=== PATIENT | male | born 1975 | race Caucasian/White ===

== ENCOUNTER → 2023-06-24 08:57 | Outpatient (CLI) | payer BC, SELFPAY ==
[2023-06-24 10:47] LABS: Alanine Aminotransferase 17 IU/L (<50); Albumin 4.4 g/dL (3.5-5.0); Albumin Globulin Ratio 1.7 (1.0-2.8); Alkaline Phosphatase 85 U/L (38-126); Aspartate Aminotransferase 20 IU/L (17-59); BUN Creatinine Ratio 17.1 (6-22); Bilirubin Total 0.8 mg/dL (0.2-1.3); Blood Urea Nitrogen 13 mg/dL (9-20); Calcium 9.1 mg/dL (8.4-10.2); Carbon Dioxide 30 mmol/L (22-32); Chloride 103 mmol/L (98-107); Cholesterol 169 mg/dL (140-199); Estimated Glomerular Filt Rate > 60 mL/min (>60); Globulin 2.6 g/dL (1.7-4.1); Glucose 84 mg/dL (70-100); HDL Cholesterol 31 mg/dL (40-60); HEMOLYSIS < 15 (0-50); LDL Cholesterol Calculated 104 mg/dL (<100); Potassium 4.3 mmol/L (3.4-5.1); Sodium 139 mmol/L (137-145); Triglycerides 170 mg/dL (35-150)
[2023-06-24 10:55] LABS: High Sensitivity CRP - Cardiac 1.3 mg/L (1.0-3.0)
== END ==
PROVIDERS: PCP Pediatrics; Referring Provider Pediatrics; Visit Provider Pediatrics
DX: E78.5 Hyperlipidemia, unspecified (principal); Z80.0 Family history of malignant neoplasm of digestive organs; Z83.3 Family history of diabetes mellitus; Z83.438 Family history of other disorder of lipoprotein metabolism and other lipidemia
CPT/HCPCS: 36415; 80053; 80061; 86140

== ENCOUNTER → 2023-11-01 11:52 | Outpatient (CLI) | payer BC, SELFPAY ==
[2023-11-01 13:15] LABS: Appearance Urine UA CLEAR; Bilirubin Urine UA NEGATIVE (NEGATIVE); Color Urine UA YELLOW; Glucose Urine UA NEGATIVE (Negative); Ketones Urine UA NEGATIVE (NEGATIVE); Leukocyte Esterase Urine UA NEGATIVE (NEGATIVE); Nitrite Urine UA NEGATIVE (Negative); Occult Blood Urine UA NEGATIVE (Negative); Protein Urine UA NEGATIVE (Negative); pH Urine UA 6.5 (4.5-8.0)
[2023-11-01 13:28] LABS: Alanine Aminotransferase 21 IU/L (<50); Albumin 4.4 g/dL (3.5-5.0); Albumin Globulin Ratio 1.7 (1.0-2.8); Alkaline Phosphatase 72 U/L (38-126); Aspartate Aminotransferase 22 IU/L (17-59); BUN Creatinine Ratio 24.2 (6-22); Bilirubin Total 0.8 mg/dL (0.2-1.3); Blood Urea Nitrogen 16 mg/dL (9-20); Calcium 9.3 mg/dL (8.4-10.2); Carbon Dioxide 28 mmol/L (22-32); Chloride 102 mmol/L (98-107); Cholesterol 223 mg/dL (140-199); Estimated Glomerular Filt Rate > 60 mL/min (>60); Globulin 2.6 g/dL (1.7-4.1); Glucose 87 mg/dL (70-100); HDL Cholesterol 32 mg/dL (40-60); HEMOLYSIS < 15 (0-50); LDL Cholesterol Calculated 150 mg/dL (<100); Potassium 4.4 mmol/L (3.4-5.1); Sodium 136 mmol/L (137-145); Triglycerides 207 mg/dL (35-150)
[2023-11-01 13:39] LABS: Bacteria Urine None Seen; Culture Indicated Urine Cult Not Indicated; RBC Urine None Seen (0-5/HPF); Squamous Epithelial Cell Urine None Seen (0-5/HPF); WBC Urine None Seen (0-5/HPF)
== END ==
PROVIDERS: PCP Family Medicine; Referring Provider Family Medicine; Visit Provider Family Medicine
DX: E78.5 Hyperlipidemia, unspecified (principal); Z83.438 Family history of other disorder of lipoprotein metabolism and other lipidemia
CPT/HCPCS: 36415; 80053; 80061; 81001

== ENCOUNTER 2024-03-03 07:32 | Emergency (ER) | payer BC, SELFPAY ==
[2024-03-03 07:40] VITALS: BP 146/79; PULSE 79; RESP 18; TEMP 36.6; O2SAT 100
--- NOTE | 2024-03-03 07:46 | PC.NURSE ---
Pt states bilateral lower back pain that woke him up from sleep. pt reports pain 5/10. Pt states he took 1 aleve [employer].
--- NOTE | 2024-03-03 07:49 | ED_ITS ---
HPI - Abdominal Pain General Chief Complaint: Abdominal Pain Stated Complaint: lower back pain poss kindney stone per pt Time Seen by Provider: 03/03/24 07:38 Source: patient Mode of arrival: Family Vehicle History of Present Illness HPI narrative: Patient is a healthy 48-year-old male who presents today with sudden onset back pain. He reports it is left side greater than right side comes and goes in waves feels nauseous at times. It is radiating down into his left groin. He took 1 Aleve 1 hour prior to arrival it has not helped. He is in the room pacing. He has never had a kidney stone. No painful frequent urination. Denies any injury. No chest pain or shortness of breath. Related Data Previous Rx's Medication Instructions Recorded hydrocodone 5 mg-acetaminophen 325 1 tab PO Q6H PRN pain #10 tabs 03/03/24 mg tablet ondansetron 4 mg disintegrating 4 mg PO Q8H PRN nausea and 03/03/24 tablet vomiting #10 tabs Allergies Allergy/AdvReac Type Severity Reaction Status Date / Time No Known Drug Allergies Allergy Verified 11/01/23 11:05 Patient History Medical History Encounter for wellness examination in adult Scoliosis (~1984) Hearing loss (~1993) Family history of diabetes mellitus Family history of combined hyperlipidemia Hyperlipidemia Surgical History Anesthesia History of skin graft (~04/2007) Family History Father Throat cancer Hyperlipidemia Mother Diabetes mellitus Hyperlipidemia Social History Smoking Status: Never smoker Smoking Status: Never smoker alcohol intake frequency: a few times a month Substance Use Type: does not use Exam Initial Vital Signs Initial Vital Signs: Vital Signs Temperature 97.8 F 03/03/24 07:40 Pulse Rate 79 03/03/24 07:40 Respiratory Rate 18 03/03/24 07:40 Blood Pressure 146/79 H 03/03/24 07:40 Pulse Oximetry 100 03/03/24 07:40 Oxygen Delivery Method Room Air 03/03/24 07:40 GENERAL: Alert 48-year-old male pacing room HEENT: Head atraumatic,EOMI, pupils reactive, CARDIOVASCULAR: Regular rate and rhythm without murmurs, rubs or gallops. RESPIRATORY: Breath sounds equal bilaterally, no wheezes rales or rhonchi. ABDOMEN: Soft, mild left lower quadrant pain no guarding no rebound : Left CVA tenderness EXTREMITIES: Normal range of motion, no clubbing or edema. Neurovascularly intact NEUROLOGICAL: Alert and oriented x4.Normal gait and speech. SKIN: Warm, dry, no laceration, no petechiae, no rashes or lesions. Course Orders Ordered: ED Orders 03/03/24 07:47 CT kidney ureter bladder (KUB) Stat 03/03/24 07:49 CBC Auto Diff [Complete Blood Count AUTO DIFF] Stat CMP [Comprehensive Metabolic Panel] Stat 03/03/24 11:27 Urine Culture Stat Urine Microscopic Stat Discontinued Medications Acetaminophen (Acetaminophen 325 Mg Tablet) 650 mg PO NOW ONE Stop: 03/03/24 10:50 Last Admin: 03/03/24 11:23 Dose: 650 mg Documented By: ELEN Sodium Chloride (Normal Saline 0.9%) 1,000 mls @ 1,000 mls/hr IV BOLUS ONE Stop: 03/03/24 10:09 Last Infusion: 03/03/24 10:46 Dose: Infused Documented By: Admin: 03/03/24 09:25 Dose: 1,000 mls/hr Documented By: ELEN Sodium Chloride (Normal Saline 0.9%) 1,000 mls @ 1,000 mls/hr IV BOLUS ONE Stop: 03/03/24 11:14 Last Infusion: 03/03/24 11:21 Dose: Infused Documented By: Admin: 03/03/24 10:20 Dose: 1,000 mls/hr Documented By: ELEN Ketorolac Tromethamine (Ketorolac 30 Mg/Ml Vial) 15 mg IV NOW ONE Stop: 03/03/24 07:48 Last Admin: 03/03/24 07:52 Dose: 15 mg Documented By: ELEN Ondansetron HCl (Ondansetron 4 Mg/2 Ml Inj) 4 mg IV NOW ONE Stop: 03/03/24 07:48 Last Admin: 03/03/24 07:52 Dose: 4 mg Documented By: ELEN Vital Signs Vital signs: Vital Signs - 8 hr 03/03/24 07:40 03/03/24 11:54 Temperature 97.8 F 97.8 F Pulse Rate 79 73 Respiratory Rate 18 16 Blood Pressure 146/79 H 131/74 Pulse Oximetry 100 100 Oxygen Delivery Method Room Air Room Air MDM - Abdominal Pain Lab Data 03/03/24 07:49 03/03/24 07:49 Labs: Lab Results 03/03/24 03/03/24 Range/Units 07:49 11:27 WBC 8.2 (4.5-11.0) X10^3/uL RBC 5.09 (4.5-5.9) X10^6/uL Hgb 16.3 (13.5-17.5) g/dL Hct 46.2 (41-53) % MCV 90.8 (80-100) fL MCH 32.0 (26-34) PG MCHC 35.3 (30-36) % RDW 13.5 (11.6-14.8) % Plt Count 237 (150-400) X10^3/uL Neut % (Auto) 62.5 (50-75) % Lymph % (Auto) 29.0 (25-40) % [place] % (Auto) 6.3 (3-14) % Eos % (Auto) 1.2 L (2-4) % Baso % (Auto) 1.0 (0-2) % Neut # (Auto) 5100 (9009-8788) /uL Lymph # (Auto) 2400 (8255-6748) /uL [place] # (Auto) 500 (0-900) /uL Eos # (Auto) 100 (0-450) /uL Baso # (Auto) 100 (0-100) /uL Sodium 141 (137-145) mmol/L Potassium 3.7 (3.4-5.1) mmol/L Chloride 108 H (98-107) mmol/L Carbon Dioxide 23 (22-32) mmol/L BUN 21 H (9-20) mg/dL Creatinine 0.93 (0.66-1.25) mg/dL Estimated GFR > 60 (>60) mL/min BUN/Creatinine Ratio 22.6 H (6-22) Glucose 115 H (70-100) mg/dL Calcium 9.7 (8.4-10.2) mg/dL Total Bilirubin 1.0 (0.2-1.3) mg/dL AST 27 (17-59) IU/L ALT 24 (<50) IU/L Alkaline Phosphatase 92 (38-126) U/L Total Protein 8.1 (6.3-8.2) g/dL Albumin 5.0 (3.5-5.0) g/dL Globulin 3.1 (1.7-4.1) g/dL Albumin/Globulin Ratio 1.6 (1.0-2.8) Urine RBC 10-30/hpf H (0-5/HPF) Urine WBC 1-5/hpf (0-5/HPF) Ur Squamous Epith Cells 0-1 /hpf (0-5/HPF) Amorphous Sediment 3+ Urine Bacteria Occasional (0-1) (None) Urine Mucus 2+ H (Negative) Urine Yeast 10-30/hpf H (None) Ur Culture Indicated? Specimen cultured Vol Urine Centrifuged 10ml (spun) Point of care testing: Urine Dip Bedside Urine Glucose Negative Bedside Urine Bilirubin + 1 Bedside Urine Ketone ++ 40 Urine Specific [place] 1.030 Bedside Urine Occult Blood +++ Bedside Urine pH 6.0 Bedside Urine Protein +/- 15 Bedside Urine Urobilinogen - Negative Bedside Urine Nitrite - Negative Bedside Urine Leukocytes +/- [address] scan - abdomen/pelvis: Radiologist's Impression: PROCEDURE: CT KIDNEY URETER BLADDER (KUB) INDICATIONS: left flank and groin pain TECHNIQUE: Axial sections were acquired from the lung bases to the pubic symphysis. Coronal and sagittal reformats were performed. For radiation dose reduction, the following was used: automated exposure control, adjustment of mA and/or kV according to patient size. COMPARISON: None. FINDINGS: Image quality: Diagnostic. Lower Chest: No significant findings. URINARY: Right Kidney: Small burden of punctate, nonobstructing nephrolithiasis. No hydronephrosis. Right Ureter: No hydroureter. Left Kidney: Small burden of punctate, nonobstructing nephrolithiasis. Mild hydronephrosis. Left Ureter: Obstructing 2 millimeter stone in the distal left ureter (series 2, image 80). Bladder: Normal wall thickness. No stones. ABDOMEN: Liver: Hepatic cysts. Additional subcentimeter hypoattenuating lesions, too small to characterize by CT. Gallbladder: No radiopaque gallstones or wall thickening. Biliary ducts: No biliary dilation. Pancreas: No ductal dilation. Spleen: Size is within normal limits. Adrenal Glands: No adrenal nodules. Stomach and Bowel: Normal colonic caliber, without significant wall thickening. Colonic diverticulosis without evidence of diverticulitis. Peritoneum: No abnormal intraperitoneal fluid. No free air. Ventral Wall: Small umbilical hernia containing fat. Abdominal Nodes: No enlarged retroperitoneal or mesenteric lymph nodes. Vessels: Aorta and inferior vena cava are normal in size. PELVIS: Pelvic Organs: Unremarkable. Pelvic Nodes: Unremarkable. Miscellaneous: No inguinal hernias are seen. Bones: Unremarkable. IMPRESSION: Obstructing 2 millimeter stone in the distal left ureter, resulting in mild hydronephrosis. Dictated by: Brown Davis M.D. on 03/03/2024 at 8:29 Approved by: Brown Davis M.D. on 03/03/2024 at 8:32 MDM Narrative Medical decision making narrative: Patient is a 48-year-old male presents today with bilateral flank pain worse on the left radiating to the groin consistent with kidney stone. He is unable to sit down continues to pace the room. CT confirms 2 mm obstructing stone in distal left ureter. He is given Toradol and Zofran with times helped still not able to sit down. Blood work has been reviewed overall reassuring without any evidence of CYNTHIA leukocytosis. Patient was unable to be he received 2 L of IV fluid. He does not have a ride home he was offered many other pain medications but would he would prefer not. Urinalysis does not show any evidence of infection. Discharge Plan Departure Patient Disposition: Home Clinical Impression: Kidney stone on left side Instructions: DI for Kidney Stones Activity Restrictions/Additional Instructions: *You have been diagnosed with kidney stone *What to do: At this time you have a very small stone which you should pass in the next 24 48 hours. There is no evidence of infection. He will continue to have intermittent pain Please stay hydrated *Continue to take medications as directed Motrin 600 mg every 6 hours for [id number] pain OR a leave 500 mg every 12 hours [place] 1-2 tablets every 4 hours if needed for severe pain Zofran 4 mg every 8 hours for [id number] *Follow up with your primary care provider in 2-3 days or call [phone] *Return to ER if you should have increasing pain inability to [or] any new, worsening or concerning symptoms Prescriptions: New hydrocodone-acetaminophen 5-325 mg tablet 1 tab PO Q6H PRN (Reason: pain) Qty: 10 0RF ondansetron 4 mg tablet,disintegrating 4 mg PO Q8H PRN (Reason: nausea and vomiting) Qty: 10 0RF Referrals: Kiet Agustin, [Primary Care Provider] - Stand Alone Forms: Patient Portal/API
[2024-03-03] MEDS: KETOROLAC 30 MG/ML VIAL 15 MG IV (07:52)
[2024-03-03] MEDS: ONDANSETRON 4 MG/2 ML INJ IV (07:52)
[2024-03-03 07:59] LABS: Add Manual Diff / Slide Review NO; Basophils Absolute Auto 100 /uL (0-100); Eosinophils Absolute Auto 100 /uL (0-450); Eosinophils Percent Auto 1.2 % (2-4); Hematocrit 46.2 % (41-53); Hemoglobin 16.3 g/dL (13.5-17.5); Lymphocytes Absolute Auto 2400 /uL (1100-4500); Mean Corpuscular HGB Conc 35.3 % (30-36); Mean Corpuscular Volume 90.8 fL (80-100); Monocytes Absolute Auto 500 /uL (0-900); Monocytes Percent Auto 6.3 % (3-14); Neutrophils Absolute Auto 5100 /uL (1500-7000); Neutrophils Percent Auto 62.5 % (50-75); Platelet Count 237 X10^3/uL (150-400); Red Blood Cell Count 5.09 X10^6/uL (4.5-5.9); Red Cell Distribution Width 13.5 % (11.6-14.8); White Blood Cell Count 8.2 X10^3/uL (4.5-11.0)
[2024-03-03 08:07] LABS: Alanine Aminotransferase 24 IU/L (<50); Albumin Globulin Ratio 1.6 (1.0-2.8); Alkaline Phosphatase 92 U/L (38-126); Aspartate Aminotransferase 27 IU/L (17-59); BUN Creatinine Ratio 22.6 (6-22); Blood Urea Nitrogen 21 mg/dL (9-20); Calcium 9.7 mg/dL (8.4-10.2); Carbon Dioxide 23 mmol/L (22-32); Chloride 108 mmol/L (98-107); Estimated Glomerular Filt Rate > 60 mL/min (>60); Globulin 3.1 g/dL (1.7-4.1); Glucose 115 mg/dL (70-100); HEMOLYSIS < 15 (0-50); Potassium 3.7 mmol/L (3.4-5.1); Sodium 141 mmol/L (137-145); Total Protein 8.1 g/dL (6.3-8.2)
[2024-03-03] MEDS: SODIUM CHLORIDE 0.9% 1,000 ML 1000 ML IV ×2 (09:25→10:20)
[2024-03-03] MEDS: ACETAMINOPHEN 325 MG TABLET 650 MG PO (11:23)
--- NOTE | 2024-03-03 11:34 | PC.NURSE ---
Pt states he has no increased pain when urinating. Pt reports the pain wraps around his lower back and goes down his left testicle.
[2024-03-03 11:39] LABS: Bacteria Urine Occasional (0-1); RBC Urine 10-30/HPF (0-5/HPF); Squamous Epithelial Cell Urine 0-1 /HPF (0-5/HPF); Urine Volume 10mL (spun); WBC Urine 1-5/HPF (0-5/HPF)
[2024-03-03 11:40] LABS: Amorphous Sediment Urine 3+; Culture Indicated Urine Specimen Cultured; Mucus Urine 2+ (Negative)
[2024-03-03 11:54] VITALS: BP 131/74; PULSE 73; RESP 16; TEMP 36.6; O2SAT 100
== END 2024-03-03 11:56 | disposition home or self-care (01) ==
PROVIDERS: Emergency Provider Emergency Medicine; PCP Family Medicine
DX: N20.0 Calculus of kidney (principal)
CPT/HCPCS: 36415; 51798; 74176; 80053; 81003; 81015; 85025; 87086; 96361; 96374; 96375; 99284; J1885; J2405

== ENCOUNTER 2024-03-09 10:53 | Emergency (ER) | payer BC, SELFPAY ==
[2024-03-09 11:04] VITALS: BP 137/83; PULSE 749; RESP 16; TEMP 35.7; O2SAT 99; BMI 26.4
--- NOTE | 2024-03-09 11:45 | ED.RECABL ---
HPI - Recheck/Abnormal Lab/Rx <Marly Stevenson PA-C - Last Filed: 03/09/24 19:50> General Chief Complaint: Recheck/Abnormal Lab/Rx Stated Complaint: Kidney Stones still , sent from his Doctor Time Seen by Provider: 03/09/24 11:18 Source: patient Mode of arrival: Ambulatory History of Present Illness HPI narrative: Patient is a 48-year-old male presenting for evaluation continued pain in left flank after diagnosis of kidney stone on March 03. He was seen in the emergency department, received CT KUB which showed an obstructing 2 mm stone in the distal left ureter resulting in mild hydronephrosis. He reports that his pain is generally improving, but he has been persistently straining his urine and has not seen the stone. He reports that he was seen by his PCP Dr. Medeiros, who ordered 2 L of fluid as well as a repeat CT KUB due to patient's continued discomfort and no evidence of stone in straining. Patient reports feeling chills during the day as well as waking up with hot sweats. He denies fever. He reports increased urination because he has been increasing his fluid intake to help flush the stone out. He endorses some burning after urination as well. He states that these symptoms and his pain are on and off in nature. He feels that his pain has lowered in his back compared to where he originally felt the pain. He endorses generalized abdominal discomfort with a feeling of fullness. He states that he has not had a bowel movement since March 03, but states he was unable to eat anything until yesterday. He reports he has not been taking stool softeners, but did take Metamucil once. He is concerned that it may interfere with the fluid he is trying to flush the stone out with. He declines any pain medication today and states he has not being given any Flomax to help ease the passage of the stone. He would like to get fluids as well as repeat imaging based upon his PCP's order. He does note that he is somewhat concerned about the radiation exposure and reports his dad the history of cancer. Related Data Previous Rx's Medication Instructions Recorded hydrocodone 5 mg-acetaminophen 325 1 tab PO Q6H PRN pain #10 tabs 03/06/24 mg tablet ondansetron 4 mg disintegrating 4 mg PO Q8H PRN nausea and 03/06/24 tablet vomiting #10 tabs Allergies Allergy/AdvReac Type Severity Reaction Status Date / Time No Known Drug Allergies Allergy Verified 11/01/23 11:05 Review of Systems <Marly Stevenson PA-C - Last Filed: 03/09/24 19:50> Review of Systems Narrative: see HPI Patient History <Marly Stevenson PA-C - Last Filed: 03/09/24 19:50> Medical History Encounter for wellness examination in adult Scoliosis (~1984) Hearing loss (~1993) Family history of diabetes mellitus Family history of combined hyperlipidemia Hyperlipidemia Surgical History Anesthesia History of skin graft (~04/2007) Family History Father Throat cancer Hyperlipidemia Mother Diabetes mellitus Hyperlipidemia Social History Smoking Status: Never smoker Smoking Status: Never smoker alcohol intake frequency: a few times a month Substance Use Type: does not use Exam <Marly Stevenson PA-C - Last Filed: 03/09/24 19:50> Initial Vital Signs Initial Vital Signs: Vital Signs Temperature 96.3 F L 03/09/24 11:04 Pulse Rate 749 H 03/09/24 11:04 Respiratory Rate 16 03/09/24 11:04 Blood Pressure 137/83 03/09/24 11:04 Pulse Oximetry 99 03/09/24 11:04 Oxygen Delivery Method Room Air 03/09/24 11:04 GENERAL: 48 year old patient appears stated age. Well-developed patient, in no acute distress, standing during exam. HEAD: Atraumatic. Normocephalic. EYES: Pupils equal round CARDIOVASCULAR: Regular rate and rhythm without murmurs, gallops, or rubs. RESPIRATORY: Clear to auscultation. Breath sounds equal bilaterally. No wheezes, rales, or rhonchi. GASTROINTESTINAL: Bowel sounds present, Abdomen soft, non-tender, nondistended. nontender over suprapubic area, no CVA tenderness BACK: Nontender without deformity or crepitance. No flank tenderness. NEURO: AOx3. SKIN: No rash or erythema of visible areas <DO Jovan Silveira Last Filed: 03/16/24 11:13> Initial Vital Signs Initial Vital Signs: Vital Signs Temperature 96.3 F L 03/09/24 11:04 Pulse Rate 749 H 03/09/24 11:04 Respiratory Rate 16 03/09/24 11:04 Blood Pressure 137/83 03/09/24 11:04 Pulse Oximetry 99 03/09/24 11:04 Oxygen Delivery Method Room Air 03/09/24 11:04 Course <Marly Stevenson PA-C - Last Filed: 03/09/24 19:50> Orders Ordered: Discontinued Medications Sodium Chloride (Normal Saline 0.9%) 1,000 mls @ 1,000 mls/hr IV BOLUS ONE Stop: 03/09/24 12:49 Last Infusion: 03/09/24 13:08 Dose: Infused Documented By: Admin: 03/09/24 12:05 Dose: 1,000 mls/hr Documented By: CTS Vital Signs Vital signs: Vital Signs - 8 hr 03/09/24 13:16 Pulse Rate 82 Respiratory Rate 16 Blood Pressure 128/82 Pulse Oximetry 99 Oxygen Delivery Method Room Air <Supriya Sinclair DO - Last Filed: 03/16/24 11:13> Orders Ordered: Discontinued Medications Sodium Chloride (Normal Saline 0.9%) 1,000 mls @ 1,000 mls/hr IV BOLUS ONE Stop: 03/09/24 12:49 Last Infusion: 03/09/24 13:08 Dose: Infused Documented By: Admin: 03/09/24 12:05 Dose: 1,000 mls/hr Documented By: CTS Vital Signs Vital signs: Vital Signs - 8 hr 03/09/24 13:16 Pulse Rate 82 Respiratory Rate 16 Blood Pressure 128/82 Pulse Oximetry 99 Oxygen Delivery Method Room Air MDM - Recheck/Abnormal Lab/Rx <Marly Stevenson PA-C - Last Filed: 03/09/24 19:50> Lab Data 03/09/24 12:03 03/09/24 12:03 Labs: Lab Results 03/09/24 Range/Units 12:03 WBC 8.8 (4.5-11.0) X10^3/uL RBC 4.26 L (4.5-5.9) X10^6/uL Hgb 13.4 L (13.5-17.5) g/dL Hct 38.2 L (41-53) % MCV 89.7 (80-100) fL MCH 31.5 (26-34) PG MCHC 35.1 (30-36) % RDW 12.9 (11.6-14.8) % Plt Count 235 (150-400) X10^3/uL Neut % (Auto) 72.2 (50-75) % Lymph % (Auto) 13.8 L (25-40) % [place] % (Auto) 11.4 (3-14) % Eos % (Auto) 2.2 (2-4) % Baso % (Auto) 0.4 (0-2) % Neut # (Auto) 6400 (0154-6813) /uL Lymph # (Auto) 1200 (3963-4213) /uL [place] # (Auto) 1000 H (0-900) /uL Eos # (Auto) 200 (0-450) /uL Baso # (Auto) 0 (0-100) /uL Sodium 138 (137-145) mmol/L Potassium 3.7 (3.4-5.1) mmol/L Chloride 105 (98-107) mmol/L Carbon Dioxide 27 (22-32) mmol/L BUN 13 (9-20) mg/dL Creatinine 1.34 H (0.66-1.25) mg/dL Estimated GFR > 60 (>60) mL/min BUN/Creatinine Ratio 9.7 (6-22) Glucose 91 (70-100) mg/dL Calcium 8.9 (8.4-10.2) mg/dL Total Bilirubin 0.7 (0.2-1.3) mg/dL AST 27 (17-59) IU/L ALT 17 (<50) IU/L Alkaline Phosphatase 63 (38-126) U/L Total Protein 7.5 (6.3-8.2) g/dL Albumin 4.1 (3.5-5.0) g/dL Globulin 3.4 (1.7-4.1) g/dL Albumin/Globulin Ratio 1.2 (1.0-2.8) Urine Dip Bedside Urine Glucose Negative Bedside Urine Bilirubin - Negative Bedside Urine Ketone - Negative Urine Specific [place] 1.010 Bedside Urine Occult Blood - Negative Bedside Urine pH 6.0 Bedside Urine Protein - Negative Bedside Urine Urobilinogen - Negative Bedside Urine Nitrite - Negative Bedside Urine Leukocytes - Negative Esterase MDM Narrative Medical decision making narrative: Patient is a 48-year-old male presenting for evaluation kidney stone in his left side 1st diagnosed on March 03 at this ER. Review of note an imaging shows it stone was 2mm, mildly obstructing and causing some hydronephrosis. He is presenting today because he was instructed by his primary care provider he would need increase fluids to help pass the stone. He reports that he also was going to have imaging ordered as well. Multiple etiologies for patient's symptoms considered including, but not limited to: UTI, hydronephrosis, bowel obstruction, pyelonephritis, obstructing kidney stone Prior Charts reviewed: Review of nurse note from 03/05/24 indicates that patient was instructed to go to the ER for IV fluids to help pass his stone. Called imaging scheduling for further information to confirm imaging ordered by PCP. We were notified that patient had IVP ordered by Dr. Agustin for which patient had to have sufficient hydration. We called to have this scheduled this for him at 2:45 p.m.. Discussed with patient, he is agreeable to receive fluids here and in light of appropriate blood work, generally improving symptoms, he should be appropriate for discharge to receive IVP imaging scheduled by PCP instead of having repeat CT done in ER. Urinalysis shows no evidence of UTI. No elevated white count in CBC. Kidney function is over 60. Patient's symptoms improved over duration of stay with above-stated therapies. Findings and discharge diagnosis discussed with patient/family followed by verbalization of understanding Return precautions discussed with patient/family whom verbalize understanding of diagnosis and plan <Supriya Sinclair, DO - Last Filed: 03/16/24 11:13> Lab Data Labs: Lab Results 03/09/24 Range/Units 12:03 WBC 8.8 (4.5-11.0) X10^3/uL RBC 4.26 L (4.5-5.9) X10^6/uL Hgb 13.4 L (13.5-17.5) g/dL Hct 38.2 L (41-53) % MCV 89.7 (80-100) fL MCH 31.5 (26-34) PG MCHC 35.1 (30-36) % RDW 12.9 (11.6-14.8) % Plt Count 235 (150-400) X10^3/uL Neut % (Auto) 72.2 (50-75) % Lymph % (Auto) 13.8 L (25-40) % [place] % (Auto) 11.4 (3-14) % Eos % (Auto) 2.2 (2-4) % Baso % (Auto) 0.4 (0-2) % Neut # (Auto) 6400 (4529-5425) /uL Lymph # (Auto) 1200 (9327-9427) /uL [place] # (Auto) 1000 H (0-900) /uL Eos # (Auto) 200 (0-450) /uL Baso # (Auto) 0 (0-100) /uL Sodium 138 (137-145) mmol/L Potassium 3.7 (3.4-5.1) mmol/L Chloride 105 (98-107) mmol/L Carbon Dioxide 27 (22-32) mmol/L BUN 13 (9-20) mg/dL Creatinine 1.34 H (0.66-1.25) mg/dL Estimated GFR > 60 (>60) mL/min BUN/Creatinine Ratio 9.7 (6-22) Glucose 91 (70-100) mg/dL Calcium 8.9 (8.4-10.2) mg/dL Total Bilirubin 0.7 (0.2-1.3) mg/dL AST 27 (17-59) IU/L ALT 17 (<50) IU/L Alkaline Phosphatase 63 (38-126) U/L Total Protein 7.5 (6.3-8.2) g/dL Albumin 4.1 (3.5-5.0) g/dL Globulin 3.4 (1.7-4.1) g/dL Albumin/Globulin Ratio 1.2 (1.0-2.8) Urine Dip Bedside Urine Glucose Negative Bedside Urine Bilirubin - Negative Bedside Urine Ketone - Negative Urine Specific [place] 1.010 Bedside Urine Occult Blood - Negative Bedside Urine pH 6.0 Bedside Urine Protein - Negative Bedside Urine Urobilinogen - Negative Bedside Urine Nitrite - Negative Bedside Urine Leukocytes - Negative Esterase Discharge Plan Departure Patient Disposition: Home Clinical Impression: Kidney stone on left side Activity Restrictions/Additional Instructions: Thank you for coming in today for your care. You received 2 L of fluid today to help in the passage of your kidney stone. Your urinalysis and blood work did not show any evidence of infection and your kidney function is within normal limits. Thankfully, it sounds like your symptoms are overall improving since the onset of your kidney stone diagnosed 6 days ago. I recommend that you continue for further imaging as ordered by your primary care provider and continue follow up with him next week. Regarding the constipation you discussed, I recommend that you take Metamucil and use a stool softener to help pass stools as you begin eating again. If you should develop severe abdominal pain, nausea, fever, difficulty urinating, chills or other concerning signs or symptoms, I recommend that you follow up in the emergency department for further evaluation. Prescriptions: No Action hydrocodone-acetaminophen 5-325 mg tablet 1 tab PO Q6H PRN (Reason: pain) Qty: 10 0RF ondansetron 4 mg tablet,disintegrating 4 mg PO Q8H PRN (Reason: nausea and vomiting) Qty: 10 1RF Referrals: Kiet Agustin DO [Primary Care Provider] - Stand Alone Forms: Patient Portal/API ED Sign-out <Supriya Sinclair DO - Last Filed: 03/16/24 11:13> Cosign ED Attending [place] Attestation: I was available for consultation.
[2024-03-09] MEDS: SODIUM CHLORIDE 0.9% 1,000 ML 1000 ML IV (12:05)
[2024-03-09 12:10] LABS: Add Manual Diff / Slide Review NO; Basophils Absolute Auto 0 /uL (0-100); Basophils Percent Auto 0.4 % (0-2); Eosinophils Absolute Auto 200 /uL (0-450); Eosinophils Percent Auto 2.2 % (2-4); Hematocrit 38.2 % (41-53); Hemoglobin 13.4 g/dL (13.5-17.5); Lymphocytes Absolute Auto 1200 /uL (1100-4500); Lymphocytes Percent Auto 13.8 % (25-40); Mean Corpuscular HGB Conc 35.1 % (30-36); Mean Corpuscular Hemoglobin 31.5 PG (26-34); Mean Corpuscular Volume 89.7 fL (80-100); Monocytes Absolute Auto 1000 /uL (0-900); Monocytes Percent Auto 11.4 % (3-14); Neutrophils Absolute Auto 6400 /uL (1500-7000); Neutrophils Percent Auto 72.2 % (50-75); Platelet Count 235 X10^3/uL (150-400); Red Blood Cell Count 4.26 X10^6/uL (4.5-5.9); Red Cell Distribution Width 12.9 % (11.6-14.8); White Blood Cell Count 8.8 X10^3/uL (4.5-11.0)
[2024-03-09 12:25] LABS: Alanine Aminotransferase 17 IU/L (<50); Albumin 4.1 g/dL (3.5-5.0); Albumin Globulin Ratio 1.2 (1.0-2.8); Alkaline Phosphatase 63 U/L (38-126); Aspartate Aminotransferase 27 IU/L (17-59); BUN Creatinine Ratio 9.7 (6-22); Bilirubin Total 0.7 mg/dL (0.2-1.3); Blood Urea Nitrogen 13 mg/dL (9-20); Calcium 8.9 mg/dL (8.4-10.2); Carbon Dioxide 27 mmol/L (22-32); Chloride 105 mmol/L (98-107); Estimated Glomerular Filt Rate > 60 mL/min (>60); Globulin 3.4 g/dL (1.7-4.1); Glucose 91 mg/dL (70-100); HEMOLYSIS < 15 (0-50); Potassium 3.7 mmol/L (3.4-5.1); Sodium 138 mmol/L (137-145); Total Protein 7.5 g/dL (6.3-8.2)
--- NOTE | 2024-03-09 12:33 | PC.NURSE ---
Pt has outpatient order for IV pyelogram. was advised by Dr Agustin to come to ED for IV fluids. Called [facility], scheduling department and was able to get pt an appt today after IVF have infused. Plan to leave IV in place and check in to central registration after fluids completed.
[2024-03-09 13:16] VITALS: BP 128/82; PULSE 82; RESP 16; O2SAT 99
== END 2024-03-09 13:31 | disposition home or self-care (01) ==
PROVIDERS: Emergency Provider Physician Assistant; PCP Family Medicine
DX: N13.2 Hydronephrosis with renal and ureteral calculous obstruction
CPT/HCPCS: 36415; 74178; 80053; 81003; 85025; 96360; 99284; Q9967

== ENCOUNTER → 2024-03-09 13:35 | Outpatient (CLI) | payer BC, SELFPAY ==
--- NOTE | 2024-03-09 13:37 | DI.CT.S_ITS ---
PROCEDURE: CT ABDOMEN PELVIS WO/W CON INDICATIONS: Kidney Stone TECHNIQUE: Optional 5 mm thick noncontrast images acquired from the diaphragm to the symphysis pubis. After the administration of intravenous contrast, 5 mm thick images acquired from the diaphragm to the symphysis pubis after a 10-minute delay. 2 mm thick coronal and sagittal reformats were then performed of the kidneys and ureters. For radiation dose reduction, the following was used: automated exposure control, adjustment of mA and/or kV according to patient size. COMPARISON: [facility], CT, CT KIDNEY URETER BLADDER (KUB), 03/03/2024, 7:51. FINDINGS: Image quality: Diagnostic. Kidneys and Ureters: Both kidneys are normal in size, without right-sided hydronephrosis or nephrolithiasis bilaterally. There is, however, delayed excretion of contrast through the left renal cortex into the moderately dilated left collecting system associated with persistence of a far distal left ureteral small stone. This calculus was identified 03/03/24 just posterior to the bladder margin and now has progressed to be impacted within the orifice of the distal left ureter but has not entered the bladder itself. No perinephric fat stranding. There is normal bilateral renal enhancement. Renal calyces appear normal in morphology when filled with contrast. Opacified portions of both ureters demonstrate normal caliber Bladder: Bladder wall thickness is normal. No calcified bladder stones. OTHER: Lower chest: Unremarkable. Liver: No solid mass. Gallbladder: No radiopaque gallstones or wall thickening. Biliary ducts: No biliary dilation. Pancreas: No ductal dilation. Spleen: Size is within normal limits. Adrenal Glands: No adrenal nodules. Stomach and Bowel: Normal colonic caliber, without significant wall thickening. Peritoneum: No abnormal intraperitoneal fluid. No free air. Ventral Wall: No hernia. Abdominal Nodes: No retroperitoneal or mesenteric adenopathy by size criteria. Vessels: Aorta and inferior vena cava are normal in size. PELVIS: Pelvic Organs: Unremarkable. Pelvic Nodes: No enlarged lymph nodes. Miscellaneous: No inguinal hernias are seen. Bones: No aggressive osseous abnormality. IMPRESSION: Persistent 2 mm far distal left ureteral calculus has slightly progressed to the most distant margin of the left ureter but continues to produce high-grade obstruction as indicated by moderate left hydronephrosis and dilatation of the ureter to that level. There is delayed excretion of contrast into the left collecting system and the cortical enhancement is reduced on the left also as a result. Dictated by: Dimitris Wills M.D. on 03/09/2024 at 14:55 Approved by: Dimitris Wills M.D. on 03/09/2024 at 15:00
== END ==
PROVIDERS: PCP Family Medicine; Referring Provider Family Medicine; Visit Provider Family Medicine
DX: N13.2 Hydronephrosis with renal and ureteral calculous obstruction (principal)
CPT/HCPCS: 74178; Q9967

== ENCOUNTER → 2024-03-12 12:10 | Outpatient (CLI) | payer BC, SELFPAY ==
[2024-03-19 18:08] LABS: Ca oxalate monohydr 100 % (.)
== END ==
PROVIDERS: PCP Family Medicine; Visit Provider Family Medicine
DX: N20.0 Calculus of kidney (principal)
CPT/HCPCS: 82365

== ENCOUNTER → 2024-05-01 19:37 | Outpatient (CLI) | payer BC, SELFPAY ==
--- NOTE | 2024-05-01 19:39 | DI.MRI.S_ITS ---
PROCEDURE: MR ABDOMEN LIVER PROTOCOL INDICATIONS: Liver lesions found on CT TECHNIQUE: Coronal HASTE, axial 2D FLASH in- and [id number]; axial breath-hold T2 FSE. Dynamic axial VIBE during the administration of contrast; post-contrast coronal VIBE or 2D FLASH with fat saturation from the hepatic dome to the iliac crests. Restricted diffusion weighted imaging and ADC. 10 cc Eovist. COMPARISON: [facility], CT, CT ABDOMEN PELVIS WO/W CON, 03/09/2024, 14:11. FINDINGS: Image quality: Diagnostic. Lung bases: Unremarkable. Liver: No solid mass. Numerous T2 hyperintense benign cysts. No suspicious enhancement. No restricted diffusion. Gallbladder: Decompressed. No pericholecystic fluid. Biliary ducts: No biliary dilation. No filling defect. Pancreas: No ductal dilation. No mass or cystic lesion. Spleen: Size is within normal limits. Adrenal Glands: No adrenal nodules. Kidneys and Ureters: No hydronephrosis. Resolved left hydronephrosis. No solid mass. No complex renal cystic lesion which requires follow up. Stomach and Bowel: Normal colonic caliber, without significant wall thickening. Normal appendix. Peritoneum: No abnormal intraperitoneal fluid. No free air. Ventral Wall: No hernia. Abdominal Nodes: No retroperitoneal or mesenteric adenopathy by size criteria. Vessels: Aorta and inferior vena cava are normal in size. Bones: No aggressive osseous abnormality. Minimal scoliosis. IMPRESSION: 1. No significant hepatic lesion. Numerous benign cysts. 2. No biliary or pancreatic ductal dilatation. 3. Resolved left hydronephrosis. Dictated by: Oswaldo Jarvis M.D. on 05/02/2024 at 9:21 Approved by: Oswaldo Jarvis M.D. on 05/02/2024 at 9:51
== END ==
PROVIDERS: PCP Family Medicine; Referring Provider Family Medicine; Visit Provider Family Medicine
DX: K76.89 Other specified diseases of liver (principal); E78.5 Hyperlipidemia, unspecified
CPT/HCPCS: 74183; A9579